=== PATIENT | female | born 1990 | race Caucasian/White ===

== ENCOUNTER 2023-09-26 08:38 | Emergency (ER) | payer OTHER, SELFPAY ==
[2023-09-26 08:39] VITALS: BP 140/113; PULSE 90; RESP 18; TEMP 36.4; O2SAT 98; BMI 32.7
--- NOTE | 2023-09-26 08:44 | EX.ED.DYSGE1 ---
HPI History of Present Illness Chief Complaint: Abscess Informant: patient Onset/Context/Timing Onset: Days Context: Gradual Onset Timing: Continuous Current Severity: Moderate Maximum Severity: Moderate Narrative Narrative: 32-year-old female history of depression. Presents today complaining of right buttock pain. She developed an abscess about a week ago. She has been picking at it and her expressed pus from it yesterday. She has had a low-grade fever of 100. And some chills. No vomiting or diarrhea. No prior history. She is not diabetic. Prior similar symptoms: No Recent Illness/Hospitalization: No PFSH PFSH Home Medications vits,calcium no.78-iron fumarate-folic acid 29 mg-1 mg tablet (Prenatabs FA) 1 tab PO DAILY 07/14/15 [History Last Taken 03/02/16] acetaminophen 325 mg tablet (Tylenol) 325 mg PO DAILY PRN PRN general aching 03/03/16 [History Last Taken 01/28/16] albuterol sulfate 90 mcg/actuation aerosol inhaler (Ventolin HFA) 2 puff inhalation Q6H PRN PRN Asthma 03/03/16 [History Last Taken 11/19/15] loratadine 10 mg tablet (Allergy Relief (loratadine)) 10 mg PO DAILY 03/03/16 [History Last Taken 03/02/16] ibuprofen 600 mg tablet 600 mg PO 4X/DAY PRN pain or cramping #30 tabs 03/04/16 [Rx Last Taken Unknown] oxycodone 5 mg tablet 5 - 10 mg (1 - 2 x 5 mg) PO Q4H PRN PRN Mod-Severe Pain (-02/22) ##30 03/04/16 [Rx Last Taken Unknown] sertraline 50 mg tablet 75 mg (1.5 x 50 mg) PO DAILY ##60 03/06/16 [Rx Last Taken Unknown] ciprofloxacin HCl 500 mg tablet 500 mg PO BID ##10 09/19/16 [Rx Last Taken Unknown] phenazopyridine 200 mg tablet (Pyridium) 200 mg PO BID PRN PRN Pain #6 tabs 09/19/16 [Rx Last Taken Unknown] cephalexin 500 mg capsule 500 mg PO Q6H 10 days #40 caps 09/26/23 [Rx Last Taken Unknown] sulfamethoxazole 800 mg-trimethoprim 160 mg tablet (Bactrim DS) 1 tab PO BID 10 days #20 tabs 09/26/23 [Rx Last Taken Unknown] Allergy/AdvReac Type Severity Reaction Status Date / Time cefaclor [From [facility] [place]] Allergy Hives Verified 09/26/23 08:39 Social History Smoking Status: Current every day smoker ROS ROS ED ROS Narrative Subjective fever and chills. Review of Systems ROS Unobtainable: Denies due to encephalopathy Constitutional Constitutional ED: Reports chills, fever(s) and subjective Eyes Eyes: Denies blurry vision ENT ENT ED: Denies ear pain Cardiovascular Cardiovascular: Denies chest pain Respiratory/Chest Respiratory/Chest: Denies cough or dyspnea Gastrointestinal Gastrointestinal: Denies abdominal pain or constipation Genitourinary Genitourinary ED: Denies dysuria or hematuria Musculoskeletal Musculoskeletal: Denies arthralgias, back pain, myalgias or neck pain Integumentary Denies abscess or Abrasions Neurologic Neurologic: Denies headache(s) Psychiatric Psychiatric: Denies anxiety Endocrine Endocrinology: Denies cold intolerance Hematologic/Lymphatic Hematologic/Lymphatic: Reports none Allergic/Immunologic Allergic/Immunologic ED: Denies mouth swelling, tongue swelling or urticaria EXAM Physical Exam Narrative Exam Narrative: Well-appearing 32-year-old female. Vital signs stable afebrile. Initial blood pressure 140/113. H EENT exam unremarkable. Moist extremities. Neck nontender no lymphadenopathy. Lungs clear to auscultation bilaterally. Heart regular rhythm rate about 90 no murmur. Chest wall and ribs nontender. Abdomen soft nontender. Moving all 4 extremities. Normal range of motion. Normal strength. Back nontender. Buttock right side medially there is a 2 inch x 2 inch circular abscess. Tender to palpation. Flexion. Mild redness. No significant cellulitis. No bleeding. Neurologically she is awake and alert. Answering questions and following commands. Const Vital Signs: 09/26/23 08:39 Temperature 97.6 F L Temperature Source Temporal Pulse Rate 90 Respiratory Rate 18 Blood Pressure 140/113 H Blood Pressure Mean 122 Pulse Ox 98 Oxygen Delivery Method Room Air Positive well nourished and well developed; Negative for cachectic, contractures or unkempt General Appearance ED: well developed and NAD; Negative for unkempt, cachectic, contractures, cyanotic, diaphoretic or pallor Nutritional Appearance: Negative for cachectic HEENT Reports moist mucous membranes; Denies dry mucous membranes Negative for trauma or tenderness Mouth ED: No dry mucous membranes Mouth: No dry mucous membranes Eyes PERRL and EOMs intact bilaterally General Eye ED: Negative for pale conjunctiva, scleral icterus or other Neck no lymphadenopathy, supple and no JVD General: Negative for tenderness Lymph Lymphatic: Negative for other Chest Wall inspection of chest normal and palpation of chest normal Chest: Negative for other Resp normal respiratory effort and clear to auscultation bilaterally Effort and Inspection: Negative for retractions Auscultation: Negative for rales, rhonchi or wheezes Cardio regular rate, regular rhythm, S1 normal heart sound, S2 normal heart sound and no murmurs Palpation: Negative for palpable S3 or palpable S4 Rate: Negative for bradycardia or tachycardic Rhythm: Negative for abnormal rhythm GI normal to inspection, nondistended, normoactive bowel sounds, non-tender, non-distended and no masses Inspection: Negative for abdominal distention Auscultation: normoactive bowel sounds Palpation: soft; Negative for tender, guarding or rebound tenderness present Back/Spine no CVA tenderness Extremity normal to inspection General Extremety ED: Negative for edema or tenderness General Extremity: Negative for edema Neuro oriented x3 and CN's II-XII intact bilaterally Sensorium / Orientation: alert Motor Exam: strength 5/5 throughout Psych mental status grossly normal Appearance: Negative for unkempt Attitude: No agitated Mood & Affect: Negative for depressed, anxious or tearful Skin no rashes or lesions noted and skin turgor normal Skin Narrative: Abscess right buttock medially. Not near the anus. Fluctuant. Tender. Mild redness. No significant surrounding cellulitis. No necrotic skin. General Skin Exam: elasticity normal; Negative for jaundice or pallor Image ED - Body Diagram Man: 1. Right medial buttock abscess. MDM MDM MDM Narrative Medical decision making narrative: 32-year-old female has a subcu abscess on the right medial buttock. This will need to be drained. Local anesthetized with lidocaine and incised and drained. Packed. Started on Keflex and Bactrim for 10 days. Outpatient follow-up. Right buttock abscess was I&D. There is only a small amount of pus. I bluntly probed the area. Placed several inches of quarter inch packing gauze. Instructed the patient and her on wound care and follow-up. She will be given a dose of Keflex and Bactrim here and placed on a prescription for age for the next 10 days. History & Record Review Discussion w/independent historian: Patient Additional record(s) reviewed:: Prior inpatient record, Prior outpatient record, Prior ED visit and Prior labs Procedures Other Procedures Procedure(s): Right buttock abscess incision and drainage: Cleaned with Shur-Clens. Local anesthetized with lidocaine. Made about a 1 inch vertical incision. Broke up loculations with a blunt probe. Express purulent material. Packed with quarter inch gauze. Patient was instructed on wound care. Discharge Plan Triage Chief Complaint: Abscess ED Provider: Nirav Figueroa Dx/Rx/DC Orders Clinical Impression: Abscess of skin and subcutaneous tissue, History of depression Instructions: ED Abscess Incision And Drainage Prescriptions: New sulfamethoxazole-trimethoprim [Bactrim DS] 800-160 mg tablet 1 tab PO BID 10 Days Qty: 20 0RF cephalexin 500 mg capsule 500 mg PO Q6H 10 Days Qty: 40 0RF No Action [id number] [Prenatabs FA] 1 TABLET tablet 1 tab PO DAILY loratadine [Allergy Relief (loratadine)] 10 MG tablet 10 mg PO DAILY albuterol sulfate [Ventolin HFA] 1 INHALER inhaler 2 puff inhalation Q6H PRN PRN (Reason: Asthma) acetaminophen [Tylenol] 325 MG tablet 325 mg PO DAILY PRN PRN (Reason: general aching) oxycodone 5 MG tablet 5 - 10 mg PO Q4H PRN PRN (Reason: Mod-Severe Pain (-02/22)) Qty: 30 0RF ibuprofen 600 MG tablet 600 mg PO 4X/DAY PRN (Reason: pain or cramping) Qty: 30 1RF sertraline 50 MG tablet 75 mg PO DAILY Qty: 60 3RF phenazopyridine [Pyridium] 200 MG tablet 200 mg PO BID PRN PRN (Reason: Pain) Qty: 6 0RF ciprofloxacin HCl 500 MG tablet 500 mg PO BID Qty: 10 0RF Primary Care Provider: Benjy Gold Referrals: Benjy Gold DO [Primary Care Provider] - 1 Week Activity Restrictions/Additional Instructions: Pull packing out 3 days. Motrin and Tylenol for pain. Keflex 1 pill 4 times a day and Bactrim 1 pill twice a day for the next 10 days. Follow-up with your doctor if not improving or return if worse. This should progressively start getting better in the next 3 to 5 days. Disposition Disposition: Home, Self Care
[2023-09-26] MEDS: Lidocaine 1% (20 ml mdv) 20 ML Vial 10 ML INFILT (09:01)
[2023-09-26] MEDS: Cephalexin 250 MG Capsule 500 MG PO (10:09)
[2023-09-26] MEDS: Smz/Tmp Ds Tablet 1 TABLET PO (10:09)
[2023-09-26 10:12] VITALS: BP 134/75; PULSE 72; RESP 16; TEMP 36.4; O2SAT 99
== END 2023-09-26 10:17 | disposition home or self-care (01) ==
PROVIDERS: Emergency Provider Emergency Medicine; PCP Student in an Organized Health Care Education/Training Program; Visit Provider Emergency Medicine
DX: L02.31 Cutaneous abscess of buttock (principal); R50.9 Fever, unspecified; F17.200 Nicotine dependence, unspecified, uncomplicated
CPT/HCPCS: 10061; 99284

== ENCOUNTER 2024-01-30 21:18 | Emergency (ER) | payer OTHER, SELFPAY ==
[2024-01-30 21:19] VITALS: BP 158/92; PULSE 87; RESP 18; TEMP 36.1; O2SAT 98
[2024-01-30 21:20] VITALS: BMI 36.4
[2024-01-30] MEDS: Ondansetron ODT 4 MG Tablet PO (22:05)
[2024-01-30] MEDS: morphine 8 MG/ML Syringe 6 MG IM (22:05)
--- NOTE | 2024-01-30 22:14 | RAD_ITS ---
INDICATION: Injury/Pain EXAMINATION/TECHNIQUE: X-RAY - LEFT XR Shoulder Min 2 Views 2 VIEWS COMPARISON: No relevant prior comparison study available FINDINGS: SOFT TISSUES: No soft tissue swelling or gas. No radiopaque foreign body. The visualized lung is clear. BONES/JOINTS: Dislocation at the glenohumeral joint. Anterior position of the humeral head in relation to the glenoid. No fracture identified. The acromioclavicular joint is intact. The visualized ribs appear intact. RAD/Shoulder min 2 Views IMPRESSION: Anterior shoulder dislocation. Electronically Signed: Oneil Lo MD at 22:29 EDT ,
--- NOTE | 2024-01-30 22:34 | EDS_ITS ---
HPI History of Present Illness Chief Complaint: Upper Extremity Injury Informant: patient Narrative Narrative: Patient is a 33-year-old female presenting with left shoulder pain after a fall. Patient states her dog knocked her over and she landed on her left shoulder on the cement. She thinks she dislocated. She has some tingling in her hand most pronounced at the thumb. Denies any weakness. Denies any prior history of any injury to her shoulder. No other complaints or concerns at this time. Is having significant pain of her shoulder. Denies in her head. Is not on any blood thinners. No other injuries reported. [facility] Medical History Marijuana use Depression Bipolar 2 disorder Home Medications ?Medication ?Instructions ?Recorded ?Last Taken ?Type acetaminophen 325 mg tablet 325 mg PO DAILY PRN PRN general 03/03/16 01/28/16 History (Tylenol) aching albuterol sulfate 90 mcg/actuation 2 puff inhalation Q6H PRN PRN 03/03/16 11/19/15 History aerosol inhaler (Ventolin HFA) Asthma ibuprofen 600 mg tablet 600 mg PO 4X/DAY PRN pain or 03/04/16 Unknown Rx cramping #30 tabs bupropion HCl 300 mg 24 hr tablet, 300 mg PO DAILY 01/30/24 Unknown History extended release cholecalciferol (vitamin D3) 50 2,000 unit PO DAILY 01/30/24 Unknown History mcg (2,000 unit) tablet (Vitamin D3) lamotrigine 150 mg tablet 150 mg PO DAILY 01/30/24 Unknown History paroxetine HCl 20 mg tablet 20 mg PO DAILY 01/30/24 Unknown History Allergy/AdvReac Type Severity Reaction Status Date / Time cefaclor (From [facility]) Allergy Hives Verified 01/30/24 21:19 Surgical History Hx of wisdom tooth extraction Hx of section Social History Smoking Status: Current every day smoker tobacco type: cigarettes ROS ROS ED Constitutional Constitutional ED: Denies chills or fever(s) Eyes Eyes: Denies change in vision Gastrointestinal Gastrointestinal: Reports nausea; Denies vomiting Musculoskeletal Musculoskeletal: Reports other Details: Left shoulder pain Integumentary Reports Abrasions Neurologic Neurologic: Reports paresthesias LUE; Denies weakness Hematologic/Lymphatic Hematologic/Lymphatic: Denies easy bleeding or easy bruising EXAM Physical Exam Const Vital Signs: 01/30/24 21:19 Temperature 96.9 F L Temperature Source Temporal Pulse Rate 87 Respiratory Rate 18 Blood Pressure 158/92 H Blood Pressure Mean 114 Pulse Ox 98 Oxygen Delivery Method Room Air Positive well nourished and well developed General Appearance ED: well developed HEENT normocephalic and atraumatic Neck full ROM and supple General: Negative for tenderness Chest Wall inspection of chest normal Resp normal respiratory effort and clear to auscultation bilaterally Cardio regular rate and regular rhythm Cardio Narrative: 2+ radial pulses Extremity Extremity Narrative: No obvious deformity of the left shoulder but tenderness. Does not tolerate any range of motion. No bony tenderness of the clavicle or elbow/wrist. No other bony tenderness or injury appreciated. Neuro oriented x3, no focal motor deficits and no sensory deficits noted Sensorium / Orientation: alert Motor Exam: muscle tone normal throughout Psych mental status grossly normal Mood & Affect: tearful Skin Skin Narrative: Superficial abrasion to the left proximal forearm MDM MDM MDM Narrative Medical decision making narrative: Patient is evaluated for left shoulder injury after fall. Differential includes proximal humerus fracture, dislocation or shoulder strain. Patient be given IM morphine as she does not want an IV and obtain x-ray. X-ray reviewed by myself as well as radiology is consistent with a closed anterior shoulder dislocation. Patient is willing to try the park maneuver as she does not want an IV. Patient tolerates this well and has successful reduction with improvement of pain and range of motion. Patient placed in a sling. Postreduction x-rays ordered. Postreduction x-ray reviewed by myself as well as radiology shows adequate reduction and no further fracture. Patient has improvement of her pain and all of her symptoms. Will be discharged home with outpatient orthopedic follow-up. Is given a work note with work restrictions as patient does work as an occupational therapy. Patient is given return precautions. She declines any prescription pain medicine and states she will just alternate ibuprofen and Tylenol as needed. Discharged home improved and stable condition. Significant other at the bedside to drive her home. Radiography Diagnostic Testing: Clinical Impression(s) from Imaging Studies Shoulder X-Ray 01/30/24 22:14 IMPRESSION: Anterior shoulder dislocation. Electronically Signed: Oneil Lo MD at 22:29 EDT , Discharge Plan Triage Chief Complaint: Upper Extremity Injury ED Provider: Peyton Oneal Dx/Rx/DC Orders Clinical Impression: Closed anterior dislocation of left shoulder Instructions: ED Dislocation: Shoulder (Reduced) Prescriptions: No Action albuterol sulfate [Ventolin HFA] 1 INHALER inhaler 2 puff inhalation Q6H PRN PRN (Reason: Asthma) acetaminophen [Tylenol] 325 MG tablet 325 mg PO DAILY PRN PRN (Reason: general aching) ibuprofen 600 MG tablet 600 mg PO 4X/DAY PRN (Reason: pain or cramping) Qty: 30 1RF cholecalciferol (vitamin D3) [Vitamin D3] 50 mcg (2,000 unit) tablet 2,000 unit PO DAILY lamotrigine 150 mg tablet 150 mg PO DAILY paroxetine HCl 20 mg tablet 20 mg PO DAILY bupropion HCl 300 mg tablet extended release 24 hr 300 mg PO DAILY Stand Alone Forms: ED Work / School Excuse Primary Care Provider: Benjy Gold Referrals: Benjy Gold DO [Primary Care Provider] - Jagdish Almonte MD [Med Staff - Active Staff] - 3-5 Days Activity Restrictions/Additional Instructions: You may ice your shoulder. Alternate ibuprofen and Tylenol as needed for pain. Wear the sling at least for the next 48 hours preferably until cleared by orthopedics. Print Language: Serbian Disposition Disposition: Home, Self Care Discharge Date/Time: 01/30/24 23:35
--- NOTE | 2024-01-30 22:35 | RAD_ITS ---
INDICATION: post reduction EXAMINATION/TECHNIQUE: X-RAY - LEFT XR Shoulder Min 2 Views 2 VIEWS COMPARISON: Prior study dated: 01/30/24 FINDINGS: SOFT TISSUES: No soft tissue swelling or gas. No radiopaque foreign body. BONES/JOINTS: No acute fracture or subluxation. Reduction of the prior left glenohumeral dislocation with appropriate alignment. Normal alignment. Preservation of the joint space.. No sclerotic or destructive changes observed. RAD/Shoulder min 2 Views IMPRESSION: Reduction of the prior left shoulder dislocation with appropriate alignment. Electronically Signed: Oneil Lo MD at 22:51 EDT ,
[2024-01-30 23:35] VITALS: BP 128/83; PULSE 87; RESP 16; O2SAT 99
== END 2024-01-30 23:35 | disposition home or self-care (01) ==
PROVIDERS: Emergency Provider Emergency Medicine; PCP Student in an Organized Health Care Education/Training Program; Visit Provider Emergency Medicine
DX: S43.015A Anterior dislocation of left humerus, initial encounter (principal); F31.81 Bipolar II disorder; F17.210 Nicotine dependence, cigarettes, uncomplicated; Z79.899 Other long term (current) drug therapy; W19.XXXA Unspecified fall, initial encounter
CPT/HCPCS: 23650; 73030; 96372; 99283